=== PATIENT | male | born 1960 | race Caucasian/White ===

== ENCOUNTER 2024-11-05 13:39 | Inpatient (IN) | payer MEDICARE, MEDICAID, SELFPAY ==
[2024-11-05] VITALS (12 sets, daily range): BP systolic 97–117; BP diastolic 55–81; PULSE 57–89; RESP 14–89; TEMP 36.8–36.9; O2SAT 90–100; BMI 29.7
--- NOTE | 2024-11-05 13:42 | XR_ITS ---
Examination: CT brain head without contrast. 2-D sagittal coronal reconstructions Date and time of exam:November 05, 2024 1344 hours INDICATIONS: Stroke alert, onset focal neurologic deficit today CTDI: vol (mGy):58.5 DLP: (mGycm):1269 Technique: Multiple CT axial sections of the brain have been obtained, 5 mm slice thickness. Contrast has not been administered. 2-D sagittal, coronal reconstructions have been obtained Low dose protocols were performed. One or more of the following dose reduction techniques were used; automated exposure control, adjustment of the mA and/or KV according to patient size, use of iterative reconstruction technique. Findings: No significant ventricular enlargement. Intra-axial or extra-axial hemorrhage density is not seen. No mass effect or midline shift Basal cisterns are not remarkable. Fourth ventricle is midline. Cranial vault intact. Impression: Negative for acute hemorrhage, mass effect or midline shift
--- NOTE | 2024-11-05 13:42 | EKG_ITS ---
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
--- NOTE | 2024-11-05 13:42 | XR_ITS ---
Examination: CTA carotids with intravenous contrast CTA brain, head with intravenous contrast. 2-D sagittal, coronal reconstructions. 3-D reconstructions. Exam date and time: November 05, 2024 1400 hours INDICATIONS: Stroke alert, onset focal neurologic deficit slurred speech left-sided facial droop beginning 45 minutes ago CTDI: vol (mGy) 31 DLP: (mGycm) 518 Technique: Multiple CTA axial brain, head carotid images post intravenous contrast injection 75 cc, [id number]. 2-D sagittal, coronal reconstructions. 3-D reconstructions, 3-D post processing including vascular maximum intensity projection images. Low dose protocols were performed. One or more of the following dose reduction techniques were used; automated exposure control, adjustment of the mA and/or KV according to patient size, use of iterative reconstruction technique. Findings: 30-50% stenosis right carotid bifurcation origin right internal carotid artery 30-50% stenosis left carotid bifurcation origin left internal carotid artery Dominant left vertebral artery no critical stenoses left vertebral artery No filling of the proximal right vertebral artery, the mid and distal right vertebral artery is diffusely reduced in caliber No filling intracranial right vertebral artery axial image 101 Basilar artery posterior cerebral artery branches do fill Juxtasellar supraclinoid portions internal carotid arteries, M1 segments middle cerebral arteries middle cerebral artery trifurcation vessels anterior cerebral vessels fill with no large vessel occlusions IMPRESSION: 30-50% stenosis right carotid bifurcation origin right internal carotid artery 30-50% stenosis left carotid bifurcation origin left internal carotid artery No filling proximal right vertebral artery in the neck No filling intracranial right vertebral artery Middle cerebral anterior cerebral and posterior cerebral branches demonstrate no large vessel occlusions Recommend brain MRI MRA stroke protocol follow-up Recommend carotid vertebral Doppler sonography follow-up with specific attention to right vertebral artery flow
--- NOTE | 2024-11-05 13:42 | PC.NURSE ---
PT TAKEN TO CT.
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
--- NOTE | 2024-11-05 13:54 | ESCONSULT_ITS ---
Tele Neuro Consultation Consultation Date 11/05/24 Consultation Narrative [facility] Patient Name:???ARTURO MCCALL Date of :???1960 Identification Number:??? Date of Service:???11/05/2024 13:37:44 Diagnosis:?G93.41 - Encephalopathy Metabolic ?R47.81 - Slurred speech ?R40.0 - Somnolence ?M62.81 - Generalized Muscle Weakness Impression: ?altered mental status/decreased level of arousal and slurred speech with generalized weakness; possible recurrence of [employer]IAN diffuse large B cell lymphoma vs possible acute ischemic stroke vs acute toxic or metabolic or infectious encephalopathy vs seizure/postictal ? CTA head/neck is pending at this time ?load with aspirin 300 mg [place] x1 as patient cannot swallow safely due to mental status ?hold home Xarelto pending MRI brain to clarify stroke burden if any ?will need to clarify home medications (and clarify if there have been any new medications or dosing changes) ?limit sedating meds ?allow permissive HTN for first 24 hours then slowly and gradually goal normotension thereafter ?gftzl-njwufctps-agcsoziekg workup (including cardiac workup as well as UDS, ETOH level) ?admit for further workup and management ?MRI brain WITH AND WITHOUT CONTRAST when able ?EEG to eval for asymmetry or interictal activity ?continue to monitor on telemetry ?echo ?labs for risk factor stratification (lipid panel, HbA1c, TSH with free T4) ?PT/OT/speech ? ?All questions were answered to the best of my ability. Discussed plan with ED team (including ED provider) who are all in agreement with plan. Sign Out: ? Discussed with Emergency Department Provider Metrics: Last Known Well: 11/05/2024 13:00:00 Dispatch Time: 11/05/2024 13:37:44 Arrival Time: 11/05/2024 13:39:41 Initial Response Time: 11/05/2024 13:38:38Symptoms: altered mental status, slurred speech, and left facial droop. Initial patient interaction: 11/05/2024 13:43:15 NIHSS Assessment Completed: 11/05/2024 13:58:05Patient is not a candidate for Thrombolytic. Thrombolytic Medical Decision: 11/05/2024 13:45:05Patient was not deemed candidate for Thrombolytic because of following reasons: Use of NOAC in last 48 hrs. . Imaging was personally reviewed. CTH is negative for bleed or early ischemic changes. CTA head/neck shows patent vessels without dissection, high grade stenosis, or large vessel occlusion. Primary Provider Notified of Diagnostic Impression and Management Plan on: 11/05/2024 14:00:25 History of Present Illness:Patient is a 64 year old Male. Patient was brought by EMS for symptoms of altered mental status, slurred speech, and left facial droop. 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 Symptoms were noted by son at 1300 per EMS (unconfirmed LKW). patient was noted to be confused with slurred speech and a new left facial droop. History is limited 2/2 patient's mental status. 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 patient reports tobacco use. he reports alcohol use every other day . he denies any illicit drug use although EMS reported that son mentioned that patient did have a history of drug use but unclear what substances and son was not sure if he was still using any illicit drugs at this time. ? Past Medical History: ?Hypertension ?Diabetes Mellitus ?Hyperlipidemia ?Coronary Artery Disease Other PMH:? hypothyroidism, deep vein thrombosis on Xarelto Medications: Anticoagulant use:??Yes?Xarelto 20 mg Antiplatelet use:?Unknown Reviewed EMR for current medications Allergies:? Reviewed Social History: Smoking: Yes Alcohol Use: Yes Drug Use: No Family History: There is no family history of premature cerebrovascular disease pertinent to this consultation ROS :?ROS Cannot Be Obtained Because:? Patient Is Confused Past Surgical History: There Is No Surgical History Contributory To Today?s Visit There Is Surgical History of:? cardiac stents NIHSS may not be reliable due to: decreased level of arousal/patient is obtunded. Examination: BP(119/80),?Pulse(84),?Blood Glucose(130) 1A: Level of Consciousness - Requires repeated stimulation to arouse?+ 2 1B: Ask Month and Age - Both Questions Right?+ 0 1C: Blink Eyes & Squeeze Hands - Performs Both Tasks?+ 0 2: Test Horizontal Extraocular Movements - Normal?+ 0 3: Test Visual Rodriguez - No Visual Loss?+ 0 4: Test Facial Palsy (Use Grimace if Obtunded) - Normal symmetry?+ 0 5A: Test Left Arm Motor Drift - Drift, but doesn't hit bed?+ 1 5B: Test Right Arm Motor Drift - Drift, but doesn't hit bed?+ 1 6A: Test Left Leg Motor Drift - Drift, but doesn't hit bed?+ 1 6B: Test Right Leg Motor Drift - Drift, but doesn't hit bed?+ 1 7: Test Limb Ataxia (FNF/Heel-Andrea) - No Ataxia?+ 0 8: Test Sensation - Normal; No sensory loss?+ 0 9: Test Language/Aphasia - Normal; No aphasia?+ 0 10: Test Dysarthria - Mild-Moderate Dysarthria: Slurring but can be understood?+ 1 11: Test Extinction/Inattention - No abnormality?+ 0 NIHSS Score:?7 NIHSS Free Text :?Patient is obtunded but will briefly arouse to touch. oriented to age and month. latency to respond. paucity of spontaneous speech but when prompted will respond in brief phrases with mild dysarthria. Able to name objects and read simple sentences but is too drowsy to read more grammatically complex sentences. Able to follow simple commands but difficulty with two step commands. Face is symmetric at rest and on activation. Eyes conjugate on primary gaze. Full EOM in the horizontal plane in both directions. No visual field cut noted on direct confrontation testing. Sensation intact to light touch in face and extremities bilaterally. Antigravity with drift in all four extremities. U nable to assess FTN/HTS 2/2 mental status. Pre-Morbid Modified Venu Scale:2 Points = Slight disability; unable to carry out all previous activities, but able to look after own affairs without assistance Spoke with :?ITA Kumari This consult was conducted in real time using interactive audio and video technology. Patient was informed of the technology being used for this visit and agreed to proceed. Patient located in hospital and provider located at home/office setting. Patient is being evaluated for possible acute neurologic impairment and high probability of imminent or life-threatening deterioration. I spent total of 46 minutes providing care to this patient, including time for face to face visit via telemedicine, review of medical records, imaging studies and discussion of findings with providers, the patient and/or family. Dr Devyn Ro [facility] For Inpatient follow-up with [facility] physician please call [facility] at . As we are not an outpatient service for any post hospital discharge needs please contact the hospital for assistance. If you have any questions for the [facility] physicians or need to reconsult for clinical or diagnostic changes please contact us via [facility] at .
[2024-11-05 14:05] LABS: Basophils # (Auto) 0.1 Thou/mm3 (0.0-0.2); Basophils % (Auto) 1 % (0-2.5); Eosinophils # (Auto) 0.3 Thou/mm3 (0.0-0.5); Eosinophils % (Auto) 2 % (0-10); Hematocrit 32.2 % (41.0-53.0); Immature Granulocytes % (Auto) 0 % (0-0); Immature Granulocytes Auto 0.03 Thou/mm3 (0.00-0.00); Lymphocytes # (Auto) 5.5 Thou/mm3 (1.0-4.8); Lymphocytes % (Auto) 46 % (10-50); Mean Corpuscular HGB Conc 34.2 g/dl (31.0-37.0); Mean Corpuscular Hemoglobin 28.7 pg (25.0-35.0); Mean Corpuscular Volume 84 fL (80-100); Monocytes # (Auto) 0.5 Thou/mm3 (0.0-0.8); Monocytes % (Auto) 4 % (0-12); Neutrophils # (Auto) 5.7 Thou/mm3 (1.8-7.7); Neutrophils % (Auto) 47 % (37-80); Nucleated Red Blood Cell % 0 /100 WBC (0); Platelet Count 398 Thou/mm3 (140-440); RDW Standard Deviation 54.8 fL (35.1-43.9); Red Blood Count 3.83 Miln/mm3 (4.50-5.90); White Blood Count 12.1 Thou/mm3 (3.8-10.6)
[2024-11-05 14:15] LABS: Alanine Aminotransferase 8 U/L (10-49); Albumin, Serum 4.4 gm/dL (3.4-4.8); Albumin/Globulin Ratio 1.6 (1.2-2.2); Alkaline Phosphatase 87 U/L (46-116); Anion Gap 19 (7-16); Aspartate Amino Transferase 20 U/L (0-34); BUN/Creatinine Ratio 6 Ratio (12-20); Bilirubin,Total 0.2 mg/dL (0.3-1.2); Blood Urea Nitrogen 9 mg/dL (9-23); Calcium 9.8 mg/dL (8.3-10.6); Calcium (Corrected) 9.8 mg/dL (8.5-10.1); Chloride 102 mMol/L (98-107); Creatinine (Component) 1.4 mg/dL (0.6-1.3); Globulin 2.7 gm/dL (2.3-3.5); Glucose 143 mg/dL (74-106); Magnesium 1.8 mg/dL (1.6-2.6); Osmolality,Calculated 267 (275-295); Potassium 4.7 mMol/L (3.4-5.1); Sodium 133 mMol/L (136-145); Total Protein 7.1 gm/dL (5.7-8.2); Troponin I < 0.020 ng/mL (0.0-0.045); eGFR 56 See Note
[2024-11-05 14:16] LABS: Partial Thromboplastin Time 29.5 Seconds (22.0-36.0)
[2024-11-05 14:20] LABS: Carbon Dioxide 11.8 mMol/L (20.0-31.0)
[2024-11-05] MEDS: ASPIRIN 300 MG SUPP PR (14:51)
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
[2024-11-05 16:02] LABS: Amphetamine/Methamp Scrn,U Positive (Negative); Barbiturate Screen,Urine Negative (Negative); Benzodiazepines Screen,Urine Negative (Negative); Benzoylecgonine Screen, Ur Negative (Negative); Fentanyl Screen,Urine Negative (Negative); Opiate Screen,Urine Negative (Negative); THC Screen,Urine Negative (Negative)
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
[2024-11-05 16:28] LABS: Lactate (Lactic Acid) 1.5 mMol/L (0.4-2.0)
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
[2024-11-05 16:56] LABS: Beta Hydroxybutyrate 0.1 mmol/L (<0.6)
--- NOTE | 2024-11-05 17:00 | EKG_ITS ---
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
[2024-11-05 17:59] LABS: Collection Type, Urine Clean Catch
[2024-11-05 18:06] LABS: Amorphous Crystals,Urine Present (Absent); Bacteria,Urine Rare; Bilirubin,Urine Negative (Negative); Blood,Urine Negative (Negative); Clarity,Urine Clear (Clear/Hazy); Color,Urine Lt-Yellow (Lt Yel-Yel); Glucose, Urine Negative (Negative); Ketones,Urine Negative (Negative); Leukocyte Esterase,Urine Positive (Negative); Nitrite,Urine Positive (Negative); Protein,Urine Negative (Neg - Trace); RBC,Urine 4 /hpf (0-3); Specific Gravity,Urine 1.014 (1.001-1.035); Squamous Epithelial Cell,Urine 1 /hpf (0-5); Urobilinogen,Urine Negative mg/dL (0.0-1.0); WBC,Urine 8 /hpf (0-5)
[2024-11-05 18:38] LABS: Base Excess, Venous 0 (-3-3); O2 Saturation, Venous 89 % (96-97); PCO2, Venous 41 mmHg (36-56); PO2, Venous 52 mmHg (15-58); pH, Venous 7.39 (7.33-7.66)
[2024-11-05 19:03] LABS: Ammonia 40 uMol/L (11-32)
[2024-11-05 19:14] LABS: Magnesium 1.9 mg/dL (1.6-2.6)
[2024-11-05 19:15] LABS: Thyroid Stimulating Hormone 63.85 uIU/mL (0.55-4.78)
[2024-11-05] MEDS: Sodium Bicarb Inj 8.4% SYR 50 ML SYRINGE IV (19:28)
[2024-11-05 19:33] LABS: Alcohol, Blood Medical < 3.0 mg/dL (0-10.0)
[2024-11-06] VITALS (7 sets, daily range): BP systolic 98–116; BP diastolic 57–81; PULSE 58–79; RESP 12–18; TEMP 36–36.9; O2SAT 90–99; BMI 28.2
--- NOTE | 2024-11-06 04:30 | PC.NURSE ---
Patient refused bed alarm, safety and fall risk issue discussed, expressed full understanding. Call light at bedside.
--- NOTE | 2024-11-06 05:46 | PC.NURSE ---
Refused his thyroid medication, states he does not take it very often at home, explained the need, still refused.
[2024-11-06 06:02] LABS: Basophils # (Auto) 0.1 Thou/mm3 (0.0-0.2); Basophils % (Auto) 1 % (0-2.5); Eosinophils # (Auto) 0.4 Thou/mm3 (0.0-0.5); Eosinophils % (Auto) 5 % (0-10); Hematocrit 33.1 % (41.0-53.0); Hemoglobin 10.6 g/dL (13.5-16.0); Immature Granulocytes % (Auto) 0 % (0-0); Immature Granulocytes Auto 0.02 Thou/mm3 (0.00-0.00); Lymphocytes # (Auto) 2.4 Thou/mm3 (1.0-4.8); Lymphocytes % (Auto) 32 % (10-50); Mean Corpuscular Hemoglobin 27.6 pg (25.0-35.0); Mean Corpuscular Volume 86 fL (80-100); Monocytes # (Auto) 0.4 Thou/mm3 (0.0-0.8); Monocytes % (Auto) 5 % (0-12); Neutrophils # (Auto) 4.2 Thou/mm3 (1.8-7.7); Neutrophils % (Auto) 57 % (37-80); Nucleated Red Blood Cell % 0 /100 WBC (0); Platelet Count 260 Thou/mm3 (140-440); RDW Standard Deviation 56.4 fL (35.1-43.9); Red Blood Count 3.84 Miln/mm3 (4.50-5.90); White Blood Count 7.4 Thou/mm3 (3.8-10.6)
[2024-11-06 06:50] LABS: Glucose Estimated Average 134 mg/dL (80-131); Hemoglobin A1C 6.3 % Hgb (4.8-6.0)
[2024-11-06 07:36] LABS: Anion Gap 14 (7-16); BUN/Creatinine Ratio 6 Ratio (12-20); Blood Urea Nitrogen 8 mg/dL (9-23); Calcium 9.6 mg/dL (8.3-10.6); Carbon Dioxide 21.1 mMol/L (20.0-31.0); Chloride 104 mMol/L (98-107); Creatinine (Component) 1.4 mg/dL (0.6-1.3); Estimated Creatinine Clearance 64.6 mL/min (>60); Glucose 106 mg/dL (74-106); Osmolality,Calculated 275 (275-295); Potassium 4.7 mMol/L (3.4-5.1); Sodium 139 mMol/L (136-145); eGFR 56 See Note
[2024-11-06 07:37] LABS: Alanine Aminotransferase < 7 U/L (10-49); Aspartate Amino Transferase 17 U/L (0-34); Bilirubin,Total 0.2 mg/dL (0.3-1.2); Magnesium 2.1 mg/dL (1.6-2.6); Phosphorous 3.9 mg/dL (2.4-5.1); Total Protein 6.8 gm/dL (5.7-8.2)
[2024-11-06 07:38] LABS: Albumin, Serum 4.2 gm/dL (3.4-4.8); Albumin/Globulin Ratio 1.6 (1.2-2.2); Calcium (Corrected) 9.6 mg/dL (8.5-10.1); Cardiac Risk Estimate 12.9 RATIO (4.0-6.7); Cholesterol 400 mg/dL (132-200); Globulin 2.6 gm/dL (2.3-3.5); HDL Cholesterol 31 mg/dL (40-60); Triglycerides 1168 mg/dL (30-150)
[2024-11-06 07:39] LABS: Alkaline Phosphatase 86 U/L (46-116)
[2024-11-06] MEDS: ASPIRIN EC 81 MG TABEC PO (08:58)
--- NOTE | 2024-11-06 11:28 | PC.SS ---
Paul Wyman is a 64-year-old male admitted to [facility] for Stroke R/O. SS conducted bedside contact with the patient to complete initial assessment and to discuss discharge planning.? Patient confirmed demographic information. Patient identifies his dtr Candie Wyman [phone] as his surrogate decision maker. Patient resides at home with dtr. Pt states he is able to complete all ADL?s independently, no need for any source of DME. Pts PCP is Dr. Torres (last visit about 1 month ago) and pharmacy of choice is [facility]. DC option discussed and pt wishes to return home. Pts family will provide transportation upon DC. No further intervention required at this time, social service manager would be available to address any further concerns. DC Plan: Home Contact: Dtr Candie Wyman PCP: Brian
--- NOTE | 2024-11-06 11:41 | PC.PT ---
Patient was approached at 1035. Daughter at bedside. As per patient and daughter, he is already 'walking'. He refused PT, This PT explained to the patient the purpose of PT evaluation and patient still refused. Will cancel PT evaluation. RN made aware.
--- NOTE | 2024-11-06 13:00 | XR_ITS ---
Examination: CT brain head without contrast. 2-D sagittal coronal reconstructions Date and time of exam:November 06, 2024 0806 hours Comparison November 05, 2024 INDICATIONS: CT stroke alert November 05, 2024, onset focal neurologic deficit CTDI: vol (mGy):50.4 DLP: (mGycm):1206 Technique: Multiple CT axial sections of the brain have been obtained, 5 mm slice thickness. Contrast has not been administered. 2-D sagittal, coronal reconstructions have been obtained Low dose protocols were performed. One or more of the following dose reduction techniques were used; automated exposure control, adjustment of the mA and/or KV according to patient size, use of iterative reconstruction technique. Findings: No significant ventricular enlargement. Intra-axial or extra-axial hemorrhage density is not seen. No mass effect or midline shift Basal cisterns are not remarkable. Fourth ventricle is midline. Cranial vault intact. Impression: Negative for acute hemorrhage, mass effect or midline shift Consider brain MRI follow-up stroke protocol
--- NOTE | 2024-11-06 13:06 | PC.NURSE ---
Pt left AMA. He told NOC nurse that he was going to leave by 1:30PM today. Pt family at bedside came to nurses station to let RN know that he was becoming more agitated and demanding to be released, despite their efforts to convince pt to stay. RN called Dr. Ordonez to inform him of situation and he came to see pt at bedside. After speaking with pt, Dr. Ordonez notified RN that pt was choosing to go AMA. AMA form filled out and risks of leaving AMA explained to pt. Pt state they understand risks and was still choosing to leave AMA.
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
--- NOTE | 2024-11-06 16:10 | PD.RESEVENT ---
Documentation for date of: 11/06/24 Event Note Event Note: 11/06/24: Patient was seen and examined by the bedside. Previously he refused AM dose of levothyroxine. During conversation, he was slightly irritable, attributing that to the fact that his sleep was interrupted during the night. He said that the next person who comes into the room will get it . At approximately 1 pm patient reported that he is intending to leave AMA. Despite the discussion of risks of leaving AMA with Dr. Ordonez, family trying to talk to the patient, patient decided to proceed with leaving AMA. He was given a form to sign for AMA leave. His medications were sent to the pharmacy of his choice. Plan of care discussed with attending Dr. Ordonez. Gricelda Srivastava MD, PGY 1.
--- NOTE | 2024-11-06 16:29 | ECHO_ITS ---
Transthoracic Echo Report Ht (in): 73 Wt (lb): 214 Exam Location: Echo Lab Status: Inpatient Software Maintenance Engineer: KERRY Nielson^^^^ Indications: Procedure Performed: BP: 96 / 61 HR: 66 Technical Quality: Fair MEASUREMENTS (Male / Female) Normal Values 2D ECHO LV Diastolic Diameter PLAX 6.7 cm 4.2 - 5.9 / 3.9 - 5.3 cm LV Systolic Diameter PLAX 5.9 cm IVS Diastolic Thickness 0.6 cm 0.6 - 1.0 / 0.6 - 0.9 cm LVPW Diastolic Thickness 0.9 cm 0.6 - 1.0 / 0.6 - 0.9 cm LV Relative Wall Thickness 0.2 LVOT Diameter 2.0 cm Aortic Root Diameter 3.4 cm LA Systolic Diameter LX 4.4 cm 3.0 - 4.0 / 2.7 - 3.8 cm LV Ejection Fraction MOD BP 32.4 % >= 55 % LV Cardiac Index MOD BP 2373.1 cm?/min?m? LV Ejection Fraction MOD 4C 31.5 % LV Cardiac Index MOD 4C 2636.7 cm?/min?m? LV Ejection Fraction 4C AL 32.2 % LV Cardiac Index 4C AL 2806.0 cm?/min?m? LV Ejection Fraction MOD 2C 35.8 % LV Cardiac Index MOD 2C 2285.2 cm?/min?m? LV Ejection Fraction 2C AL 36.9 % LV Cardiac Index 2C AL 2405.7 cm?/min?m? LA Volume Index 41.0 cm?/m? 16 - 28 cm?/m? Ascending Aorta Diameter 2.7 cm DOPPLER AV Peak Velocity 130.5 cm/s AV Peak Gradient 6.8 mmHg AV Mean Gradient 5.0 mmHg AV Velocity Time Integral 31.9 cm LVOT Peak Velocity 73.9 cm/s LVOT Peak Gradient 2.2 mmHg LVOT Velocity Time Integral 16.5 cm LVOT Cardiac Index 1518.6 cm?/min?m? AV Area Cont Eq vti 1.6 cm? AV Area Cont Eq pk 1.8 cm? MV Area PHT 2.2 cm? MR Peak Velocity 440.3 cm/s MR Peak Gradient 77.6 mmHg Mitral E Point Velocity 67.0 cm/s Mitral A Point Velocity 74.2 cm/s Mitral E to A Ratio 0.9 TR Peak Velocity 208.0 cm/s TR Peak Gradient 17.3 mmHg PV Peak Velocity 84.0 cm/s PV Peak Gradient 2.8 mmHg RVOT Peak Velocity 52.1 cm/s FINDINGS Left Ventricle There are findings consistent with dilated cardiomyopathy. The left ventricular cavity size is moderately increased. The left ventricular ejection fraction is severely decreased, estimated at 25-30%.there is grade III diastolic dysfunction of the left ventricle (restrictive filling pattern). Right Ventricle The right ventricle is normal in size and systolic function. The estimated right ventricular systolic pressure, 20 mmHg. Left Atrium Mildly increased left atrial volume 41 mL/m?. Right Atrium The right atrium is normal by two-dimensional imaging, color flow and Doppler imaging with no structural abnormalities, no thrombus formation present. Atrial Septum The interatrial septum is normal to color flow Doppler and agitated saline imaging. Aorta The aorta is normal by two-dimensional, color flow and Doppler interrogation. Mitral Valve Mild mitral annular calcification. Moderate mitral regurgitation. Aortic Valve Aortic valve sclerosis. Tricuspid Valve There is mild tricuspid valve regurgitation. Pulmonic Valve Trivial pulmonic valve regurgitation. Vessels The pulmonary artery appears normal. The inferior vena cava pulmonary and hepatic veins appear normal. Pericardium The pericardium is normal by two-dimensional imaging. There is no significant pericardial effusion. CONCLUSIONS indication: Stroke w/ Bubble study LV is dilated & severely reduced in function 25-30% EF. Diastolic Dysfunction is present. RV appears normal with RVSP 22 mmHg. IAS is normal to color flow Doppler and agitated saline imaging. Moderate MR & MAC Mild TR AOV sclerosis Pop Bailey (Electronically Signed) Final Date: 06 November 2024 16:26
== END 2024-11-06 13:06 | disposition left against medical advice (07) | DRG 64 ==
LOC: SERX 15:02 → SERHOLD 16:59 → S3NX 11-06 03:34
PROVIDERS: Physician Assistant; Admitting Provider Internal Medicine; Emergency Provider Emergency Medicine; PCP Family Medicine; Visit Provider Student in an Organized Health Care Education/Training Program
DX: I63.9 Cerebral infarction, unspecified (principal); G93.41 Metabolic encephalopathy; G81.94 Hemiplegia, unspecified affecting left nondominant side; I25.10 Atherosclerotic heart disease of native coronary artery without angina pectoris; E78.5 Hyperlipidemia, unspecified; E03.9 Hypothyroidism, unspecified; E11.42 Type 2 diabetes mellitus with diabetic polyneuropathy; I25.2 Old myocardial infarction; R47.81 Slurred speech; I10 Essential (primary) hypertension; F17.210 Nicotine dependence, cigarettes, uncomplicated; Z92.21 Personal history of antineoplastic chemotherapy; R29.810 Facial weakness; Z92.3 Personal history of irradiation; Z79.01 Long term (current) use of anticoagulants; Z86.718 Personal history of other venous thrombosis and embolism; Z95.5 Presence of coronary angioplasty implant and graft; Z85.72 Personal history of non-Hodgkin lymphomas; Z79.84 Long term (current) use of oral hypoglycemic drugs; Z79.890 Hormone replacement therapy; Z91.148 Patient's other noncompliance with medication regimen for other reason; Z53.29 Procedure and treatment not carried out because of patient's decision for other reasons
CPT/HCPCS: 36415; 36600; 70450; 70496; 70498; 80053; 80061; 80307; 80320; 81001; 82010; 82140; 82803; 83036; 83605; 83735; 84100; 84439; 84443; 84484; 85025; 85610; 85730; 92610; 93005; 93306; 99285; A4649; Q9967; A9270; G0480

== ENCOUNTER 2025-01-15 17:39 | Emergency (ER) | payer MEDICARE, MEDICAID, SELFPAY ==
[2025-01-15 17:43] VITALS: BP 112/76; PULSE 88; RESP 21; TEMP 37.1; O2SAT 90; BMI 21.7
[2025-01-15 17:51] VITALS: PULSE 90; RESP 21
[2025-01-15 18:25] VITALS: PULSE 83
[2025-01-15 19:23] VITALS: BP 112/74; PULSE 81; RESP 16; TEMP 36.9; O2SAT 99
--- NOTE | 2025-01-15 20:32 | EKG_ITS ---
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
[2025-01-15 20:57] LABS: Basophils # (Auto) 0.1 Thou/mm3 (0.0-0.2); Basophils % (Auto) 1 % (0-2.5); Eosinophils # (Auto) 0.2 Thou/mm3 (0.0-0.5); Eosinophils % (Auto) 2 % (0-10); Hematocrit 27.6 % (41.0-53.0); Hemoglobin 9.5 g/dL (13.5-16.0); Immature Granulocytes % (Auto) 1 % (0-0); Immature Granulocytes Auto 0.07 Thou/mm3 (0.00-0.00); Lymphocytes # (Auto) 2.8 Thou/mm3 (1.0-4.8); Lymphocytes % (Auto) 22 % (10-50); Mean Corpuscular HGB Conc 34.4 g/dl (31.0-37.0); Mean Corpuscular Hemoglobin 27.7 pg (25.0-35.0); Mean Corpuscular Volume 81 fL (80-100); Monocytes # (Auto) 1.1 Thou/mm3 (0.0-0.8); Monocytes % (Auto) 9 % (0-12); Neutrophils # (Auto) 8.2 Thou/mm3 (1.8-7.7); Neutrophils % (Auto) 66 % (37-80); Nucleated Red Blood Cell # 0.06 Thou/mm3 (0.00-0.00); Nucleated Red Blood Cell % 1 /100 WBC (0); Platelet Count 159 Thou/mm3 (140-440); RDW Standard Deviation 60.3 fL (35.1-43.9); Red Blood Count 3.43 Miln/mm3 (4.50-5.90); White Blood Count 12.4 Thou/mm3 (3.8-10.6)
[2025-01-15 21:13] LABS: B-Type Natriuretic Peptide > 3280 pg/mL (0-100)
[2025-01-15 21:15] LABS: Alanine Aminotransferase 1003 U/L (10-49); Albumin, Serum 4.3 gm/dL (3.4-4.8); Albumin/Globulin Ratio 1.7 (1.2-2.2); Alkaline Phosphatase 387 U/L (46-116); Amylase 62 U/L (30-118); Anion Gap 13 (7-16); Aspartate Amino Transferase 178 U/L (0-34); BUN/Creatinine Ratio 26 Ratio (12-20); Bilirubin,Total 3.4 mg/dL (0.3-1.2); Blood Urea Nitrogen 45 mg/dL (9-23); Calcium 8.4 mg/dL (8.3-10.6); Calcium (Corrected) 8.4 mg/dL (8.5-10.1); Carbon Dioxide 23.7 mMol/L (20.0-31.0); Chloride 97 mMol/L (98-107); Creatinine (Component) 1.7 mg/dL (0.6-1.3); Estimated Creatinine Clearance 45.9 mL/min (>60); Globulin 2.6 gm/dL (2.3-3.5); Glucose 141 mg/dL (74-106); Lipase 53 U/L (12-53); Osmolality,Calculated 281 (275-295); Potassium 4.3 mMol/L (3.4-5.1); Sodium 134 mMol/L (136-145); Total Protein 6.9 gm/dL (5.7-8.2); Troponin I < 0.020 ng/mL (0.0-0.045); eGFR 44 See Note
--- NOTE | 2025-01-15 21:30 | PC.NURSE ---
Patient signed AMA form due to the long wait time. Patient refused to wait for treatment provider was notified.
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
== END 2025-01-15 21:38 | disposition left against medical advice (07) ==
LOC: SERX 18:32
PROVIDERS: Physician Assistant; Emergency Provider Emergency Medicine; PCP Family Medicine
DX: R41.82 Altered mental status, unspecified (principal); Z53.29 Procedure and treatment not carried out because of patient's decision for other reasons; I25.10 Atherosclerotic heart disease of native coronary artery without angina pectoris; Z86.73 Personal history of transient ischemic attack (TIA), and cerebral infarction without residual deficits; I10 Essential (primary) hypertension; E03.9 Hypothyroidism, unspecified; E11.9 Type 2 diabetes mellitus without complications
CPT/HCPCS: 36415; 71045; 80053; 80307; 81001; 82150; 83690; 83880; 84484; 85025; 87086; 93005; 99283